=== PATIENT | female | born 1990 | race Caucasian/White ===

== ENCOUNTER 2017-01-10 18:13 | Emergency (ER) | payer OTHER, MEDICAID ==
[~2017-01-10] VITALS: Ht 165.1 cm; Wt 68.0 kg
[~2017-01-10 18:13] MED LIST: ALBU17AE26
[2017-01-10 21:55] VITALS: BP 120/79
== END 2017-01-10 23:08 | disposition home or self-care (01) ==
LOC: ER 19:40
DX: G44.209 Tension-type headache, unspecified, not intractable (principal); L63.9 Alopecia areata, unspecified; J45.909 Unspecified asthma, uncomplicated; Z90.49 Acquired absence of other specified parts of digestive tract
CPT/HCPCS: 81025; 99282